=== PATIENT | female | born 1980 | race Hispanic/Latino ===

== ENCOUNTER 2020-09-14 18:06 | Emergency (ER) | payer OTHER ==
[~2020-09-14] VITALS: Ht 160 cm; Wt 60.3 kg
[2020-09-14 18:14] VITALS: BP 155/98
== END 2020-09-14 19:25 | disposition home or self-care (01) ==
LOC: EDH 18:06
DX: S51.832A Puncture wound without foreign body of left forearm, initial encounter (principal); W46.0XXA Contact with hypodermic needle, initial encounter; Y93.89 Activity, other specified; Y92.89 Other specified places as the place of occurrence of the external cause; Y99.8 Other external cause status
CPT/HCPCS: 36415; 99281

== ENCOUNTER → 2021-05-05 | Outpatient (CLI) | payer OTHER | END | disposition home or self-care (01) | LOC: SHCH 08:38 | PROVIDERS: ATTEND Internal Medicine Cardiovascular Disease | DX: U07.1 COVID-19 (principal); I10 Essential (primary) hypertension | CPT/HCPCS: 76770; 76775; 93975 ==

== ENCOUNTER → 2021-05-07 | Outpatient (CLI) | payer OTHER ==
[~2021-05-07] MED LIST: IOHEXOL 350 MG/ML 100ML INFUS..BTL IV ONE; METOPROLOL TARTRATE 1 MG/ML 5ML VIAL IV ONE
== END | disposition home or self-care (01) ==
LOC: RAH 14:45
PROVIDERS: ATTEND Internal Medicine Cardiovascular Disease
DX: U07.1 COVID-19 (principal); Q27.1 Congenital renal artery stenosis; I10 Essential (primary) hypertension
CPT/HCPCS: 74175; 75574; Q9967; J3490

== ENCOUNTER → 2021-05-26 | Outpatient (CLI) | payer OTHER | END | disposition home or self-care (01) | LOC: RAH 13:56 | PROVIDERS: ATTEND Internal Medicine Cardiovascular Disease | DX: U07.1 COVID-19 (principal); I10 Essential (primary) hypertension; Z98.82 Breast implant status | CPT/HCPCS: 93306 ==

== ENCOUNTER → 2024-01-07 | Outpatient (CLI) | payer BC ==
[~2024-01-07] MED LIST changes: -IOHEXOL 350 MG/ML 100ML INFUS..BTL IV ONE; +IOHEXOL-350 75 ML VIAL IV ONE; -METOPROLOL TARTRATE 1 MG/ML 5ML VIAL IV ONE
--- NOTE | 2024-01-07 15:39 | HMCIMG ---
CT ANGIO ABDOMEN HISTORY: Renal artery aneurysm COMPARISON: None TECHNIQUE: CT angiography of the abdomen and pelvis was obtained using angiographic technique with maximum intensity projection reconstruction images. Patient was not given contrast through intravenous route. Oral contrast was not given. FINDINGS: There are bilateral breast implants. No pleural effusion is seen bilaterally. There is no evidence of parenchymal disease or pulmonary nodule of the visualized lower lungs. Degenerative changes of the thoracolumbar spine are present. The heart is not enlarged. There is small periumbilical hernia with fat content. The liver, spleen, adrenal glands and pancreas are unremarkable. There is no evidence of hydronephrosis bilaterally. No evidence of renal stone is seen. Fecal material is seen in the colon. There are normal size retroperitoneal and mesenteric lymph nodes. No ascites is seen. Atherosclerotic changes are present. There is diffuse atherosclerotic disease. No evidence of abdominal aortic aneurysm is seen. 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 The celiac, superior mesenteric and bilateral renal arteries are grossly patent. The visualized portion of the iliac and femoral arterial systems are also grossly patent. Pelvic sidewalls are symmetric bilaterally. Bladder is well distended without wall thickening. IMPRESSION: 1. 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 was performed with one or more following dose reduction techniques: automated exposure control, adjustment of the mA and kv according to patient's size, or use of a iterative reconstruction technique.
== END | disposition home or self-care (01) ==
LOC: RAH 12:57
PROVIDERS: ATTEND Internal Medicine Cardiovascular Disease
DX: I72.2 Aneurysm of renal artery (principal); K42.0 Umbilical hernia with obstruction, without gangrene; N32.89 Other specified disorders of bladder; I70.1 Atherosclerosis of renal artery
CPT/HCPCS: 74175; Q9967